=== PATIENT | male | born 1960 | race Caucasian/White ===

== ENCOUNTER 2017-08-27 20:25 | Inpatient (IN) | payer BC, OTHER, SELFPAY ==
[2017-08-27] MEDS ORDERED: methylPREDNISolone Sod Succ/PF 125 MG/2 ML VIAL ONE (20:31)
[2017-08-27] MEDS ORDERED: Succinylcholine Chloride 20 MG/ML 10 ml SYRINGE FS ONE (20:36)
[2017-08-27] MEDS ORDERED: Magnesium 2 GM/NS 0.9% 50 ML 2 GM in Premix Bag 1 BAG IVPB SCH (20:45)
[2017-08-27] MEDS ORDERED: Magnesium 2 GM/NS 0.9% 100 ML 2 GM in Premix Bag 1 BAG IVPB SCH (20:45)
[2017-08-27 20:54] LABS: Anion Gap 6 mmol/L (-14-95); Lactate 1.59 mmol/L (0.50-2.20); POC Est. GFR-MDRD-African-Amer Greater than 60 (2-60); POC Estimated GFR-MDRD Greater than 60 (2-60); T. Carbon Dioxide 33.1 mmol/L (1.0-85.0); pH (Venous) 7.273 (7.35-7.45); vO2 Saturation-calc 98.6 % (0.0-100.0)
[2017-08-27] MEDS ORDERED: Fentanyl 100 MCG/2 ML VIAL ONE ×2 (21:02→21:33)
[2017-08-27] MEDS ORDERED: Midazolam HCl 2 mg/2 ml Vial ONE (21:02)
[2017-08-27] MEDS ORDERED: Albuterol Sulfate 2.5 mg/3 ml Neb ONE (21:06)
[2017-08-27] MEDS ORDERED: Fentanyl 20 MCG/ML 0 ML ONE (21:36)
[2017-08-27] MEDS ORDERED: KETALAR IVPB PRN (21:37)
[2017-08-27] MEDS ORDERED: SODIUM CHLORIDE 0.9% IVPB PRN (21:37)
[2017-08-27 21:39] LABS: Hematocrit 51.7 % (42.0-52.0); Mean Platelet Volume 8.4 fL (7.4-10.4); Red Blood Cell (RBC) Count 5.27 mill/uL (4.70-6.10); White Blood Cell (WBC) Count 24.2 thou/uL (4.8-10.8)
[2017-08-27 21:40] LABS: Lactic Acid - Sepsis 1.6 mmol/L (0.5-2.2)
[2017-08-27 21:47] LABS: ALT (SGPT) 19 U/L (8-55); AST (SGOT) 25 U/L (5-34); Alkaline Phosphatase 95 U/L (40-150); Anion Gap 11 mmol/L (10-20); BUN (Urea Nitrogen) 10 mg/dL (8.4-25.7); Bilirubin, Total 0.4 mg/dL (0.2-1.2); Calc. Creatinine Clearance 0 mL/min (70-130); Calcium 8.6 mg/dL (7.8-10.44); Carbon Dioxide 30 mmol/L (22-29); Chloride 93 mmol/L (98-107); Estimated GFR-MDRD 89; Globulin 3.5 g/dL (2.4-3.5); Protein, Total 7.3 g/dL (6.0-8.3)
[2017-08-27] MEDS ORDERED: Propofol 1,000 MG/100 ML VIAL IV ONE (21:47)
[2017-08-27 21:48] LABS: Troponin I Less than 0.010 ng/mL (< 0.028)
[2017-08-27 21:54] LABS: Neutrophil 52 % (42-75); Reactive Lymphocytes 3 % (0-10)
[2017-08-27] MEDS ORDERED: Acetaminophen 325 MG Suppository PR PRN (22:02)
[2017-08-27] MEDS ORDERED: Milk Of Magnesia 30 ML UDCUP PO PRN (22:02)
[2017-08-27] MEDS ORDERED: Mag-Al 1200 mg/1200 mg/30 ML UDCUP PO PRN (22:02)
[2017-08-27] MEDS ORDERED: Acetaminophen 325 MG/10.15 ML UDCUP PO PRN (22:02)
[2017-08-27] MEDS ORDERED: Ondansetron HCl/PF 4 MG/2 ML Vial IVP PRN (22:02)
[2017-08-27] MEDS ORDERED: Bisacodyl 10 MG SUPP PR PRN (22:02)
[2017-08-27] MEDS ORDERED: Sedation Protocol FS ONE ×2 (22:02→22:03)
[2017-08-27] MEDS ORDERED: Lacri-Lube Opth Oint 3.5 GM TUBE EA EYE PRN (22:02)
[2017-08-27] MEDS ORDERED: Bisacodyl 5 MG TAB PO PRN (22:02)
[2017-08-27] MEDS ORDERED: Norepinephrine 8 MG/0.9% NS 250 ML IVPB PRN (22:02)
[2017-08-27] MEDS ORDERED: CCU Electrolyte Replacement 1 EACH IVPB ONE (22:02)
[2017-08-27] MEDS ORDERED: Vecuronium 10 MG VIAL IVP PRN (22:04)
[2017-08-27] MEDS ORDERED: CCU Electrolyte Replacement 1 EACH FS ONE (22:04)
[2017-08-27] MEDS ORDERED: hydrALAZINE 20 MG/ML VIAL SLOW IVP PRN (22:07)
[2017-08-27 22:14] LABS: Oxyhemoglobin 96.8 % (94.0-97.0); Sodium 131 mmol/L (135-148)
[2017-08-27] MEDS ORDERED: Diltiazem 125 MG in Sodium Chloride 0.9% 100 ML IVPB SCH (22:15)
[2017-08-27] MEDS ORDERED: Sodium Chloride 0.9% 1,000 ML IV SCH (22:15)
[2017-08-27 22:19] LABS: Mechanical Tidal Volume 550 ml; Modified Allen's Test POSITIVE; Pressure Support 10 cmH2O; Vent YES
--- NOTE | 2017-08-27 22:20 | RAD ---
AP CHEST: Indication: Dyspnea. IMPRESSION: There is blunting to the costophrenic angle suspicious for tiny effusions. Chronic lung changes are similar. Heart size is normal. No acute osseous abnormality is noted. POS: [facility]
--- NOTE | 2017-08-27 22:22 | RAD ---
AP CHEST: Indication: Dyspnea. IMPRESSION: Since the comparison exam dated 8:03 p.m., the patient has been intubated with placement of a gastri c catheter. Chronic lung changes are similar. There is improved aeration of the lung bases. No pneum othorax is evident. COMMENTS: ET tube tip is seen 7.7 cm from the level of the alena. Gastric catheter projects below the left he midiaphragm and beyond the field of view. There are vascular calcifications involving the aortic arc h. POS: [facility]
[2017-08-27] MEDS ORDERED: Potassium Phosphate 9 MMOL in Sodium Chloride 0.9% 100 ML IVPB PRN (22:25)
[2017-08-27] MEDS ORDERED: Potassium Chloride 40 MEQ in Sodium Chloride 0.9% 250 ML 250 ML IVPB PRN (22:25)
[2017-08-27] MEDS ORDERED: Potassium Chloride 20 MEQ TAB PO PRN (22:25)
[2017-08-27] MEDS ORDERED: Potassium Phosphate 12 MMOL in Sodium Chloride 0.9% 250 ML 250 ML IV PRN (22:25)
[2017-08-27] MEDS ORDERED: Magnesium Oxide 400 MG TAB PO PRN ×2 (22:25)
[2017-08-27] MEDS ORDERED: Potassium Chloride 40 MEQ in Premix Bag 1 BAG IVPB PRN (22:25)
[2017-08-27] MEDS ORDERED: Potassium Phosphate 15 MMOL in Sodium Chloride 0.9% 250 ML 250 ML IV PRN (22:25)
[2017-08-27] MEDS ORDERED: Magnesium 2 GM/NS 0.9% 100 ML 2 GM in Premix Bag 1 BAG IVPB PRN (22:25)
[2017-08-27] MEDS ORDERED: CCU ELECTROLYTE REPLACEMENT PROTOCOL FS PRN (22:25)
[2017-08-27] MEDS ORDERED: Fentanyl 20 MCG/ML 250 ML IVPB SCH (22:26)
[2017-08-27] MEDS ORDERED: DISCONTINUE PREVIOUS NARCOTIC PAIN MEDICATIONS AND BENZODIAZEPINES FS SCH (22:26)
[2017-08-27] MEDS: Amiodarone HCl 450 MG in Dextrose 5% in Water 250 ML IVPB SCH ×2 (23:54)
[2017-08-28] MEDS: Sodium Chloride 0.9% 1,000 ML IV SCH ×3 (00:11→17:41)
[2017-08-28] MEDS: methylPREDNISolone Sod Succ/PF 125 MG/2 ML VIAL IVP SCH ×5 (00:19→23:06)
[2017-08-28] MEDS ORDERED: Digoxin 0.5 MG/2 ML AMP SLOW IVP SCH (02:45)
[2017-08-28 03:17] LABS: Bilirubin Small (Negative); Blood, Urine Negative (Negative); Glucose, Urine (Dipstick) Negative (Negative); Ketone, Urine Negative (Negative); Nitrite Negative (Negative); Protein, Urine (Dipstick) Negative (Neg-Trace); Urobilinogen 0.2 mg/dL (0.2-1.0)
[2017-08-28 03:34] LABS: Bacteria/HPF None Seen HPF (None Seen); Hyaline Casts/LPF 4-6 HYALINE CAST LPF (0-3 Hyaline); RBC/HPF None Seen HPF (0-3); Squamous Epithelial 0-3 HPF (0-3); WBC/HPF 0-3 HPF (0-3)
[2017-08-28] MEDS: Lorazepam 2 MG/ML VIAL SLOW IVP PRN ×4 (04:38→17:04)
[2017-08-28] MEDS: Propofol 1,000 MG/100 ML VIAL IV PRN ×2 (04:43→16:22)
--- NOTE | 2017-08-28 04:45 | HP ---
PRIMARY CARE PHYSICIAN: Heather. CHIEF COMPLAINT: Respiratory failure, hypoxia, and shortness of breath. HISTORY OF PRESENT ILLNESS: Mr. Alonso is a 56-year-old male with past medical history o f COPD; peritonitis, November last year with perforation; hypertension; history of alcohol abuse; an d paroxysmal atrial fibrillation who was brought into the emergency room with complaints of shortnes s of breath. History is mainly obtained by discussion with the ER physician and electronic medical records have been reviewed extensively. The patient was last seen in our facility in 12/2015, at ich time, he was treated for perforated viscus. He had developed respiratory failure requiring intu bation at that time along with atrial fibrillation with RVR, which was treated with Cardizem drip. The patient is unable to provide any history at this time because of endotracheal tube in position. Mr. Alonso has his daughter and his brother at bedside, but reportedly [facility], so history is somewhat incomplete. His daughter reports that he was recently admitted to [facility] for about 2 weeks and just got discharged 2 days ago. He was treated for hi s \\\\"heart rate.\\\\" Medication evaluation shows that he was discharged on Multaq as well as Eliquis . He did not have any significant respiratory issues during that hospitalization and did not requir e intubation. However, the daughter reports that he was complaining of his chest not feeling well a nd having some problems breathing. Nevertheless, he developed some shortness of breath and was brou ght into the emergency room where he was found to be hypertensive initially. His breathing deterior ated quickly, despite nebulizer, magnesium, and steroid treatment and he had to be intubated using p ropofol and ketamine and is now being admitted to the Critical Care Unit on mechanical ventilation. His chest x-ray: show any evidence of pneumonia and preliminary diagnosis at this time is acute ex acerbation of COPD leading to acute respiratory failure. The patient did become hypotensive and tachycardic in the emergency room after receiving paralytics and sedatives. He is now hemodynamically stable. Further workup revealed leukocytosis with WBCs at 24,000 and ABG which shows pH of 7.29, pCO2 of 55, and pO2 of 136, sodium 131, chloride 96, potassi um 3.9 on pressure support ventilation. He has hyponatremia with sodium at 129, which is rather chr onic for him. His TSH is within normal limits. His renal function and cardiac enzymes are within n ormal limits. PAST MEDICAL HISTORY: 1. History of COPD. 2. Paroxysmal atrial fibrillation, on chronic anticoagulation with Eliquis twice a day. 3. History of hypoxic respiratory failure requiring intubation, 12/2015. 4. History of peritonitis with bowel perforation and sepsis, requiring surgery, 12/2015. 5. Hypertension. 6. Hyponatremia. 7. History of alcohol abuse. PAST SURGICAL HISTORY: Repair of the perforated-abdominal viscus, 12/2015. SOCIAL HISTORY: Listed as the patient being a smoker of 2 pack of cigarettes more than 20 years and drinker of 20 drinks per week. At this time, I am unsure how much he smokes or drinks as he is not able to provide any history. FAMILY HISTORY: No family history of premature coronary artery disease, stroke, or cancer. CURRENT MEDICATIONS: Include Multaq 400 mg p.o. b.i.d., Eliquis 5 mg p.o. b.i.d., lisinopril unknow n dose, and Protonix 40 mg daily. REVIEW OF SYSTEMS: It is largely unobtainable due to the patient being intubated and mildly sedated . LABORATORY DATA: CBC shows WBCs of 24.2 with 52% neutrophils, hemoglobin 16.3, platelet count of 39 8. Initial VBG shows pH of 7.27 with pCO2 of 67, and oxygen 139. Serum chemistry shows sodium 129, chloride 93, bicarbonate 30, anion gap 11, BUN and creatinine 10 and 0.88 respectively. Lactic aci d 1.6, magnesium 2.3. Liver enzymes unremarkable. Cardiac enzymes within normal limits. TSH 0.43. Chest x-ray by my review shows no evidence to suggest pulmonary effusion, edema, or infiltrate. PHYSICAL EXAMINATION: VITAL SIGNS: Heart rate in the 150s, blood pressure 113/56, afebrile, oxygen saturation 100% on jessie tilator. GENERAL: He is awake and alert and coughing because of the endotracheal tube in place. His hands a re in restraints. Family is at bedside. HEENT: Endotracheal tube in place. Head is normocephalic, atraumatic. No scleral icterus. No con junctival pallor. Mucous membrane appears moist. NECK: Supple without any lymphadenopathy or JVD. CHEST: Revealed decreased breath sounds throughout without any significant wheezing or rales or rho nchi. CARDIOVASCULAR: Rate and rhythm is irregular and tachycardic. ABDOMEN: Distended, mildly tender to palpation as he grimaces when I palpate, appears tympanic on p ercussion and soft without any rigidity. EXTREMITIES: Free of any cyanosis, clubbing, or edema. NEUROLOGIC: He is moving all 4 extremities or at least trying to as his hands are in restraints. H e answers to the questions with nodding or shaking of the head and appears awake, alert, and oriente d x3. VASCULAR: +2 pedal pulses felt bilaterally. SKIN: Free of any rashes or bruises. Feels warm and dry to touch. PSYCHIATRIC: Cannot be obtained due to intubated and sedated state. IMPRESSION AND PLAN: 1. Acute respiratory failure, likely secondary to acute exacerbation of chronic obstructive pulmona ry disease. The patient will be continued on mechanical ventilation and we will request consultatio n with Pulmonary Medicine. Dr. Ramirez has been notified and actually he has already seen the patie nt and I have briefly discussed the case with him. He will be admitted to the Critical Care Unit an d will be started on CCU electrolyte protocol and sedation protocol. We will provide him with a Fol ey catheter and monitor I's and O's, continue with high dose IV steroids along that is scheduled and p.r.n. nebulizers. We will repeat a chest x-ray in the morning. 2. Leukocytosis, likely a stress reaction. The patient does not appear to be septic. We will put him on empiric antibiotic coverage for possible bronchitis with levofloxacin for now. Blood culture s have been sent. We will check a UA and influenza test as well. The patient was recently hospital ized a few days ago. 3. Atrial fibrillation with rapid ventricular response. The patient has a history of chronic parox ysmal atrial fibrillation. His last echocardiogram done in our facility in 11/2015 when he had the similar episode showed preserved ejection fraction of 60% to 65% without any significant valvular ab normality. At this time, we will resume his Eliquis 5 mg p.o. b.i.d. and start him on amiodarone dr dasilva and hold his Multaq for now. We will request consultation with Cardiology for further recommenda tions. This is likely secondary to acute respiratory distress at this time. The patient's blood pr essures on the softer side, so we will avoid Cardizem drip at this time. 4. Hyponatremia, likely secondary to chronic alcohol abuse. We will monitor the sodium levels care fully. He will be on gentle IV hydration with normal saline and we will monitor the levels on a kemi ly basis. 5. History of alcoholism. I am unsure that the patient is still actively drinking or not. We will put him on ASE protocol to prevent withdrawal symptoms. We will avoid any long-acting sedated ligh t Valium at this time. 6. History of peritonitis. 7. History of chronic obstructive pulmonary disease as #1. 8. Code status: FULL CODE presumed at this time. 9. Deep venous thrombosis and gastrointestinal prophylaxis. The patient is on Eliquis. We will ad d PPIs IV. DISPOSITION: I have discussed the care plan with the daughter and brother in the room at this time. He will be admitted to Critical care Unit and further management will depend upon his clinical cou rse. Estimated length of stay is at least 3-4 midnight at this time. Critical care provided for a total of 35 minutes including face to face interactions and discussion with the family.
[2017-08-28 04:52] LABS: ALT (SGPT) 19 U/L (8-55); AST (SGOT) 25 U/L (5-34); Alkaline Phosphatase 77 U/L (40-150); Anion Gap 10 mmol/L (10-20); BUN (Urea Nitrogen) 9 mg/dL (8.4-25.7); Bilirubin, Total 0.5 mg/dL (0.2-1.2); Calc. Creatinine Clearance 142 mL/min (70-130); Calcium 7.9 mg/dL (7.8-10.44); Carbon Dioxide 24 mmol/L (22-29); Chloride 97 mmol/L (98-107); Estimated GFR-MDRD Greater than 90; Globulin 2.8 g/dL (2.4-3.5); Protein, Total 6.2 g/dL (6.0-8.3)
[2017-08-28 05:15] LABS: Band 1 % (5-11); Hematocrit 44.9 % (42.0-52.0); Mean Platelet Volume 7.9 fL (7.4-10.4); Neutrophil 95 % (42-75); Red Blood Cell (RBC) Count 4.57 mill/uL (4.70-6.10); White Blood Cell (WBC) Count 17.5 thou/uL (4.8-10.8)
--- NOTE | 2017-08-28 05:42 | CON ---
DATE OF CONSULTATION: 08/27/2017 CONSULTING PHYSICIAN: Hospitalist group. REASON FOR CONSULTATION: Acute respiratory failure. The following encompassed 45 minutes critical care time. HISTORY OF PRESENT ILLNESS: This is a 56-year-old male who came to the hospital with acute shortnes s of breath after taking a breathing treatment at home. His brother tells me that he was just disch arged from the [facility] after he stayed there for supraventricular tachycardia. The patient is currently intubated after failing BiPAP at this facility. He cannot give me anything in the way of history at this time. He has been seen by Dr. Dwayne Berg, my partner, in the past. He was in respiratory failure in the ICU about a year and a half ago. He ordinarily seeks care at [facility], but was brought here by the ambulance because of the proximity to this [facility]. PAST MEDICAL HISTORY: 1. Severe COPD. 2. Atrial fibrillation versus supraventricular tachycardia. PAST SURGICAL HISTORY: None. SOCIAL HISTORY: He has smoked over a year. He formerly drank heavily, but I think he has cut back on that. Does not use illicit drugs. MEDICATIONS: Prior to admission, Eliquis 5 mg b.i.d., Multaq 400 mg b.i.d., Flonase 2 sprays each n ostril daily, ipratropium 1 neb every 6 hours as needed, aspirin 81 mg daily, Protonix 40 mg daily, lisinopril 10 mg daily. ALLERGIES: None. REVIEW OF SYSTEMS: Cannot be obtained as the patient is currently intubated. PHYSICAL EXAMINATION: VITAL SIGNS: His heart rate is in the 150s to 160s. It is regular but P-waves appeared to be absen t. Blood pressure 128/75, respiratory rate 20. GENERAL: The patient is in profound respiratory distress. He is not quite sedated on mechanical ve ntilation. HEENT: Pupils react. Sclerae are anicteric. Oropharynx clear. NECK: Without adenopathy or JVD. LUNGS: He has grossly diminished breath sounds with a prolonged expiratory phase. CARDIAC: S1, S2, tachycardic and regular. ABDOMEN: Soft, nontender, nondistended. There is a large surgical scar that is well healed at lowe r midline. EXTREMITIES: Without clubbing, cyanosis, or edema. PSYCHIATRIC: The patient's overall appearance is a grossly disheveled. LABORATORY DATA: Sodium 129, potassium 5.1, chloride 93, CO2 of 30, BUN 10, creatinine 0.8, glucose 159. Troponin 0.1. Initial blood gas pH 7.27, pCO2 of 67, pO2 of 139. White blood cell count 24. 2, hemoglobin 16, hematocrit 51, platelet count 398. IMAGING: Chest x-ray shows gross over-distention without evidence of mass, effusion, or infiltrate. ASSESSMENT: 1. Chronic obstructive pulmonary disease with exacerbation. 2. Acute hypoxic and hypercapnic respiratory failure, requiring mechanical ventilation. 3. Severe tachycardia. PLAN: 1. Continue mechanical ventilation. 2. Sedate. 3. Empiric antibiotics. 4. IV steroids. 5. Aggressive nebulization treatment every 3 hours. 6. Restart the Eliquis. 7. Hold the ketamine drip. 8. IV fluids. 9. I spoke with family at the bedside.
[2017-08-28] MEDS: Budesonide 0.5 MG/2 ML NEB INH SCH ×2 (07:40→18:24)
[2017-08-28 07:47] LABS: Oxyhemoglobin 97.5 % (94.0-97.0); Sodium 127 mmol/L (135-148)
[2017-08-28 08:09] LABS: Mechanical Tidal Volume 450 ml; Mode SIMV.PSV; Modified Allen's Test POSITIVE; Pressure Support 10 cmH2O; Vent YES
--- NOTE | 2017-08-28 08:11 | PRG ---
DATE OF SERVICE: 08/28/2017 Thirty-five minutes critical care time. The patient remains intubated on mechanical ventilation. He becomes very agitated with any stimulation. PHYSICAL EXAMINATION: VITAL SIGNS: His pulse is 135, blood pressure 130/84, O2 sat 97%, temperature 97.9. HEENT: Disheveled appearance. NECK: No JVD. LUNGS: End expiratory wheezing with air trapping noted on the ventilator waveforms. CARDIAC: S1, S2, tachycardic. ABDOMEN: Soft, nontender. EXTREMITIES: No clubbing, cyanosis, or edema. LABORATORY DATA: PH 7.37, pCO2 43, pO2 161. White blood cell count 17.5, hematocrit 44.9, platelet count 277. Sodium 126, potassium 4.7, chloride 97, CO2 24, BUN 9, creatinine 0.7, glucose 147. ASSESSMENT: 1. Acute respiratory failure related to chronic obstructive pulmonary disease exacerbation. 2. Tachycardia, which is either atrial fibrillation, atrial flutter or multifocal atrial tachycardia. PLAN: 1. He is not weanable at this time secondary to air trapping. 2. Continue IV steroids and nebulization treatments. 3. Need Cardiology input in regards to the tachycardia. 4. He is continuing anticoagulation that was started at [facility]. 5. He would be stable from a pulmonary care critical care standpoint to transfer to [facility] if his insurance necessitates that he be in that hospital. CHARLIE
[2017-08-28] MEDS: Amiodarone HCl 450 MG in Dextrose 5% in Water 250 ML IVPB SCH ×2 (08:28)
[2017-08-28] MEDS: Famotidine 20 MG TAB PER TUBE SCH ×2 (08:28→20:37)
[2017-08-28] MEDS: Apixaban 5 MG TAB PER TUBE SCH ×2 (08:28→20:37)
--- NOTE | 2017-08-28 08:52 | PDOC.PN ---
- Subjective Encounter Start Date: 08/28/17 Encounter Start Time: 08:30 -: non-verbal Subjective: INTUBATED, SEDATED - Objective MAR Reviewed: Yes Vital Signs & Weight: Vital Signs (12 hours) Temp Pulse Resp BP Pulse Ox 08/28/17 08:00 98.6 F 131 H 18 08/28/17 07:34 127 H 147/87 H 08/28/17 07:32 128 H 26 H 98 08/28/17 07:00 98.6 F 08/28/17 06:00 16 08/28/17 04:00 97.9 F 16 08/28/17 03:27 142 H 08/28/17 03:26 98 08/28/17 02:46 138 H 08/28/17 02:00 17 08/28/17 00:00 97.6 F 25 H 08/27/17 23:54 141 H 82/43 L 97 08/27/17 23:53 97 08/27/17 23:20 97.6 F 160 H 25 H 95 08/27/17 23:10 95 Weight Weight 192 lb 3.889 oz Most Recent Monitor Data Heart Rate from ECG 134 NIBP 110/74 NIBP BP-Mean 82 Respiration from ECG 18 SpO2 95 I&O: 08/27/17 08/28/17 08/29/17 06:59 06:59 06:59 Intake Total 892.3 Output Total 890 165 Balance 2.3 -165 Result Diagrams: 08/28/17 04:02 08/28/17 04:02 Radiology Reviewed by me: Yes Phys Exam - Physical Examination SEDATED HEENT: moist MMs ETT IN PLACE Respiratory: clear to auscultation bilateral Cardiovascular: irregular TACHYCARDIC Gastrointestinal: soft HYPOACTIVE BS Musculoskeletal: no edema SEDATED Deviation from normal: SEDATED Skin: no rash Dx/Plan (1) Acute respiratory failure Code(s): J96.00 - ACUTE RESPIRATORY FAILURE, UNSP W HYPOXIA OR HYPERCAPNIA Status: Acute Qualifiers: Respiratory failure complication: hypercapnia Qualified Code(s): J96.02 - Acute respiratory failure with hypercapnia (2) Leucocytosis Code(s): D72.829 - ELEVATED WHITE BLOOD CELL COUNT, UNSPECIFIED Status: Acute (3) Alcohol abuse Code(s): F10.10 - ALCOHOL ABUSE, UNCOMPLICATED Status: Chronic (4) COPD (chronic obstructive pulmonary disease) Status: Chronic Qualifiers: COPD type: COPD with acute exacerbation Qualified Code(s): J44.1 - Chronic obstructive pulmonary disease with (acute) exacerbation (5) HTN (hypertension) Code(s): I10 - ESSENTIAL (PRIMARY) HYPERTENSION Status: Chronic Qualifiers: Hypertension type: essential hypertension Qualified Code(s): I10 - Essential (primary) hypertension Comment: monitor for now did not ahve home meds (6) Hyponatremia Code(s): E87.1 - HYPO-OSMOLALITY AND HYPONATREMIA Status: Chronic (7) Paroxysmal a-fib Code(s): I48.0 - PAROXYSMAL ATRIAL FIBRILLATION Status: Chronic Comment: NSR now. On Cardizem - Plan cont current plan of care, plan discussed w/ family, respiratory therapy INTUBATED, GISELLA WITH POSSIBLE CARDIOVERSION PER CARDS. -: VENT SUPPORT PER PULMONARY, STEROIDS B2 AGONISTS * .
--- NOTE | 2017-08-28 08:54 | PDOC.EVN ---
Event Note - Event Note Event Note: CRITICAL CARE TIME 42MINUTES. SPOKE WITH DAUGHTER AT BEDSIDE WITH ASTROPHYSICS TEACHER
[2017-08-28] MEDS ORDERED: Enoxaparin Sodium 40 MG/0.4 ML SYRINGE SC SCH (09:00)
[2017-08-28] MEDS ORDERED: Pantoprazole 40 MG VIAL IVP SCH (09:00)
--- NOTE | 2017-08-28 09:41 | RAD ---
CHEST 1 VIEW: Date: 08/28/17 HISTORY: Ventilated patient. COMPARISON: Chest 1 view from prior day. FINDINGS/IMPRESSION: The patient is intubated with endotracheal tube tip craniad to the alena 5.5 cm. Heart size upper l imits of normal. Enteric tube tip is below the diaphragm and out of field of view. No focal air spac e consolidation. POS: [facility]
--- NOTE | 2017-08-28 17:09 | OP ---
DATE OF SERVICE: 08/28/2017 PREPROCEDURE DIAGNOSIS: Atrial flutter/atrial fibrillation with hypotension. PREPROCEDURE DIAGNOSIS: Successful cardioversion. SUMMARY: Mr. Alonso is a pleasant 56-year-old white gentleman who comes to the hospital for respir atory insufficiency. He is intubated and sedated and went into AFIB, RVR and hypotension, so the pl an was to do GISELLA cardioversion. After thrombus was ruled out with a transesophageal echo, the pads were placed and a single 100 joules synchronized shock was delivered and successfully converting him from atrial flutter to normal sinus rhythm with PACs. The patient tolerated the procedure well. RECOMMENDATIONS: Include, 1. Continue amiodarone drip. 2. Continue Eliquis for now.
--- NOTE | 2017-08-28 17:17 | CON ---
DATE OF CONSULTATION: 08/28/2017 REASON FOR CONSULTATION: Atrial fibrillation/atrial flutter. HISTORY OF PRESENT ILLNESS: Mr. Alonso is a very pleasant 56-year-old white gentleman, who comes t o the hospital for shortness of breath. He was diagnosed with a COPD exacerbation and had to be int ubated. He has a history of paroxysmal atrial fibrillation and was seen last here in 2015. He had a very similar presentation with a COPD exacerbation that required intubation. He was started on am iodarone drip with the difference that he converted to sinus fairly quickly and he remained in sinus throughout his hospital stay. He was lost to follow up after that. He probably went to the [facility] 2 weeks ago for having his heart rate be high apparently and he was started on Mu ltaq and Eliquis. The daughter is unable to tell me if he was actually back in sinus rhythm before he left the hospital, but there was a lot of talk about possibly doing a cardioversion and eventuall y this never happened. This time around he is intubated and his heart rate is in the 150s and what appears to be 2:1 atrial flutter and his blood pressure is in the 80s/50s. PAST MEDICAL HISTORY: 1. COPD. 2. Paroxysmal atrial fibrillation on chronic anticoagulation. 3. Hypoxic respiratory failure, requiring intubation back in 12/2015. 4. Peritonitis and bowel perforation last year. 5. Hypertension. 6. Hyponatremia. 7. Alcohol abuse in the past. He has not had any alcohol for the last 2 weeks. PAST SURGICAL HISTORY: Repair of perforated viscus. SOCIAL HISTORY: Smokes a pack of cigarettes for over the last 20 years. He uses about a 12 pack al most every day. He has not drank anything for the last 2 weeks since he was in the hospital. FAMILY HISTORY: Noncontributory. OUTPATIENT MEDICATIONS: Include; 1. Multaq 400 mg b.i.d. 2. Eliquis 5 mg b.i.d. 3. Lisinopril 4. Protonix. ALLERGIES: No known drug allergies. REVIEW OF SYSTEMS: Unobtainable as the patient is sedated and intubated. PHYSICAL EXAMINATION: VITAL SIGNS: Temperature 98.4, pulse 153, respiratory rate 20, satting 100% on 50% FiO2. GENERAL: Sedated and intubated. HEENT: Normocephalic and atraumatic. NECK: Supple. LUNGS: Coarse breath sounds bilaterally. Distant lung sound. CARDIOVASCULAR: S1, S2. No S3 or S4. Heart rate at 153. ABDOMEN: Soft, positive bowel sounds. EXTREMITIES: No edema. SKIN: Warm and dry. LABORATORY DATA: Laboratory work was reviewed. White count of 24 on admission down to 17, hemoglob in of 16, hematocrit of 51, platelet count of 398. ABG was reviewed. Chemistries were reviewed. S odium of 129 on admission, normal potassium at 5.1, chloride of 93, carbon dioxide of 30, anion gap of 11, BUN of 10, creatinine 0.88. GFR of 89, troponin has been less than assay limit x1. TSH was normal. EKG showed atrial flutter with 2:1 AV block. ASSESSMENT: 1. Paroxysmal atrial flutter/atrial fibrillation. Blood pressure in the 80s/40s. 2. Chronic obstructive pulmonary disease exacerbation. 3. Possible lower respiratory infection. 4. Acute hypoxic hypercapnic respiratory insufficiency, requiring mechanical ventilation. 5. Alcohol abuse. 6. Tobacco abuse. PLAN: Given his hypotension and his tachycardia; at this time, we will plan on doing a GISELLA cardiove rsion. I have spoken with the daughter about this. Risks and benefits were reviewed and she agrees to proceed. Continue Eliquis for now for stroke prophylaxis and continue amiodarone drip as well. Further recommendations per results of GISELLA and cardioversion.
[2017-08-28 22:50] LABS: Anion Gap 13 mmol/L (10-20); BUN (Urea Nitrogen) 9 mg/dL (8.4-25.7); Calc. Creatinine Clearance 134 mL/min (70-130); Calcium 8.2 mg/dL (7.8-10.44); Carbon Dioxide 24 mmol/L (22-29); Chloride 98 mmol/L (98-107); Estimated GFR-MDRD Greater than 90
--- NOTE | 2017-08-29 | ECHO ---
DATE OF SERVICE: 08/28/17 Transesophageal echo was done for evaluation of a possible cardioversion afterwards. Sedation was achieved as he is intubated and sedated already. A small bolus of propofol was given. After adequate sedation was achieved, transesophageal probe was inserted into the mouth into the eso phagus without problems. We then obtained multiplanar views. Left ventricle is normal size. Normal systolic function, EF estimated at 55-60%. No regional wall motion abnormalities. Left atrium is mildly dilated. Left atrial appendage is a small appendage with normal velocities with no evidence of mass or thromb us. Right atrium is normal size with no mass or thrombus. Right ventricle is normal size. Aortic valve was sclerotic but opens well, no stenosis or regurgitation. Mitral valve is structurally normal. There is mild MR, no stenosis. Tricuspid valve is structurally normal. There is moderate TR. Pulmonary valve is structurally normal. There is no stenosis or regurgitation. CONCLUSIONS: 1. Normal systolic function. 2. Ejection fraction at 55-60%. 3. Left atrial appendage without any significant mass or thrombus. 4. Mild MR, moderate TR.
[2017-08-29] MEDS: Amiodarone HCl 450 MG in Dextrose 5% in Water 250 ML IVPB SCH ×4 (00:04→13:16)
[2017-08-29] MEDS: Propofol 1,000 MG/100 ML VIAL IV PRN (00:57)
[2017-08-29] MEDS: Lorazepam 2 MG/ML VIAL SLOW IVP PRN (01:18)
[2017-08-29 04:45] LABS: #Lymphocytes 0.5 thou/uL (1.20-3.40); #Monocytes 0.2 thou/uL (0.11-0.59); #Neutrophils 8.2 thou/uL (1.40-6.50); %Basophils 0.1 % (0.0-1.0); %Lymphocytes 5.2 % (21.0-51.0); %Monocytes 2.3 % (0.0-10.0); Hematocrit 37.7 % (42.0-52.0); Mean Platelet Volume 7.6 fL (7.4-10.4); Red Blood Cell (RBC) Count 3.86 mill/uL (4.70-6.10); White Blood Cell (WBC) Count 8.9 thou/uL (4.8-10.8)
[2017-08-29 05:13] LABS: Band 5 % (5-11); Hematocrit 38.1 % (42.0-52.0); Mean Platelet Volume 7.6 fL (7.4-10.4); Neutrophil 85 % (42-75); Red Blood Cell (RBC) Count 3.91 mill/uL (4.70-6.10)
[2017-08-29] MEDS: Sodium Chloride 0.9% 1,000 ML IV SCH ×4 (05:17→18:09)
[2017-08-29 05:18] LABS: ALT (SGPT) 15 U/L (8-55); AST (SGOT) 14 U/L (5-34); Alkaline Phosphatase 61 U/L (40-150); Anion Gap 9 mmol/L (10-20); BUN (Urea Nitrogen) 9 mg/dL (8.4-25.7); Bilirubin, Total 0.3 mg/dL (0.2-1.2); Calc. Creatinine Clearance 150 mL/min (70-130); Calcium 8.2 mg/dL (7.8-10.44); Carbon Dioxide 26 mmol/L (22-29); Chloride 99 mmol/L (98-107); Estimated GFR-MDRD Greater than 90; Globulin 2.4 g/dL (2.4-3.5); Protein, Total 5.5 g/dL (6.0-8.3)
[2017-08-29] MEDS: methylPREDNISolone Sod Succ/PF 125 MG/2 ML VIAL IVP SCH (06:29)
[2017-08-29] MEDS: Budesonide 0.5 MG/2 ML NEB INH SCH ×3 (07:40→18:44)
--- NOTE | 2017-08-29 07:58 | PRG ---
DATE OF SERVICE: 08/29/2017 A 35 minutes critical care time. SUBJECTIVE: The patient remains intubated on mechanical ventilation. He is awake, alert, and follo ws commands. PHYSICAL EXAMINATION: VITAL SIGNS: His temperature is 98.6, pulse 104, blood pressure 131/77. Total intake for 24 hours 3711, output 1650. HEENT: Unremarkable. NECK: No JVD. CHEST: Clear to auscultation. CARDIAC: S1 and S2 regular - he was cardioverted yesterday from atrial flutter to sinus rhythm. ABDOMEN: Soft, nontender. EXTREMITIES: No clubbing, cyanosis, or edema. LABORATORY DATA: Sodium 130, potassium 4.3, chloride 99, CO2 26, BUN 9, creatinine 0.6, glucose 144 . Albumin 3.1. White blood cell count 8.9, hematocrit 37.7, platelet count 259. X-RAY FINDINGS: Chest x-ray is clear. ASSESSMENT: 1. Chronic obstructive pulmonary disease exacerbation. 2. Atrial flutter, which has now been converted to a sinus rhythm. PLAN: 1. The patient will be extubated and observed. 2. I will go down on the steroid dose. 3. Update family when they are available.
--- NOTE | 2017-08-29 08:24 | RAD ---
CHEST ONE VIEW: History: Ventilated patient. Comparison: Prior day. FINDINGS: Patient is intubated with tip in unchanged position. Enteric tube is in place with the tip below the diaphragm and out of the field of view. There are linear opacities in the left lung base likely atelectasis. Heart size is similar. No large hemithorax. IMPRESSION: No significant change in the radiograph appearance of the chest. POS: [facility]
[2017-08-29] MEDS: Famotidine 20 MG TAB PER TUBE SCH ×2 (08:38→21:19)
[2017-08-29] MEDS: Apixaban 5 MG TAB PER TUBE SCH ×2 (08:38→21:19)
--- NOTE | 2017-08-29 09:28 | PDOC.PN ---
- Subjective Encounter Start Date: 08/29/17 Encounter Start Time: 09:25 Patient seen at bedside. Extubated this morning. Denies SOB, palpitations. - Objective MAR Reviewed: Yes Vital Signs & Weight: Vital Signs (12 hours) Temp Pulse Resp BP Pulse Ox 08/29/17 07:44 110 H 19 97 08/29/17 07:42 98.6 F 104 H 18 08/29/17 07:00 98.6 F 08/29/17 06:00 17 08/29/17 04:27 89 15 100 08/29/17 04:00 98 F 14 08/29/17 02:38 99 110/57 L 08/29/17 02:00 17 08/29/17 00:57 100 08/29/17 00:55 107 H 22 H 100 08/29/17 00:00 97.9 F 21 H 08/28/17 23:00 100 08/28/17 22:41 94 130/65 08/28/17 22:40 94 16 100 08/28/17 22:00 17 Weight Admit Weight 192 lb Weight 195 lb 1.6 oz Most Recent Monitor Data Heart Rate from ECG 110 NIBP 157/83 NIBP BP-Mean 96 Respiration from ECG 16 SpO2 100 I&O: 08/28/17 08/29/17 08/30/17 06:59 06:59 06:59 Intake Total 892.3 3711.4 13 Output Total 890 1650 60 Balance 2.3 2061.4 -47 Result Diagrams: 08/29/17 04:25 08/29/17 04:25 Phys Exam - Physical Examination Constitutional: NAD HEENT: moist MMs Neck: no JVD Respiratory: clear to auscultation bilateral Cardiovascular: RRR Gastrointestinal: soft Musculoskeletal: pulses present Neurological: moves all 4 limbs Psychiatric: A&O x 3 Dx/Plan (1) Acute respiratory failure Code(s): J96.00 - ACUTE RESPIRATORY FAILURE, UNSP W HYPOXIA OR HYPERCAPNIA Status: Resolved Qualifiers: Respiratory failure complication: hypercapnia Qualified Code(s): J96.02 - Acute respiratory failure with hypercapnia (2) Alcohol abuse Code(s): F10.10 - ALCOHOL ABUSE, UNCOMPLICATED Status: Chronic (3) COPD (chronic obstructive pulmonary disease) Status: Chronic Qualifiers: COPD type: COPD with acute exacerbation Qualified Code(s): J44.1 - Chronic obstructive pulmonary disease with (acute) exacerbation (4) HTN (hypertension) Code(s): I10 - ESSENTIAL (PRIMARY) HYPERTENSION Status: Chronic Qualifiers: Hypertension type: essential hypertension Qualified Code(s): I10 - Essential (primary) hypertension (5) Paroxysmal a-fib Code(s): I48.0 - PAROXYSMAL ATRIAL FIBRILLATION Status: Chronic - Plan cont current plan of care, continue antibiotics, respiratory therapy, DVT proph w/lovenox * Monitor after extubation. * On IV amiodarone. Will transition to PO per cardiology * Eliquis for CVA prophylaxis * Duonebs/ IV steroids (weaning) * Levaquin * ASE protocol
[2017-08-29] MEDS: PROVENTIL INHALER 6.7 G (200 INHALATIONS) INH SCH ×5 (10:39→22:21)
[2017-08-29] MEDS: Ipratropium Oral Inhaler (200 INHALATIONS) INH SCH ×2 (10:42→15:01)
[2017-08-29] MEDS: Acetaminophen 325 MG TAB PO PRN (13:15)
[2017-08-29] MEDS: Dronedarone HCl 400 MG TAB PO SCH (17:06)
[2017-08-29] MEDS: Arformoterol 15 MCG/2 ML NEB NEB SCH (18:41)
--- NOTE | 2017-08-29 19:19 | PDOC.CTH ---
Cardiology Progress Note - Subjective He has been extubated since last seen. He remains in SR with PAC's. - Objective Vital Signs Temp Pulse Resp Pulse Ox 08/29/17 18:41 108 H 16 98 08/29/17 15:00 98.7 F 104 H 19 100 08/29/17 11:00 98.6 F 08/29/17 10:42 108 H 17 100 08/29/17 07:44 110 H 19 97 08/29/17 07:42 98.6 F 104 H 18 Admit Weight 192 lb Weight 195 lb 1.6 oz 08/28/17 08/29/17 08/30/17 06:59 06:59 06:59 Intake Total 892.3 3711.4 828 Output Total 890 1650 1345 Balance 2.3 2061.4 -517 - Physical Examination General/Neuro: alert & oriented x3, NAD Neck: no JVD present Lungs: unlabored respirations Heart: RRR Abdomen: NT/ND Extremities: other: (no edema) - Telemetry Telemetry Rhythm: S tach PAC's - Labs Result Diagrams: 08/29/17 04:25 08/29/17 04:25 Troponin/CKMB CK-MB (CK-2) 5.0 ng/mL (0-6.6) 08/27/17 20:43 Troponin I Less than 0.010 ng/mL (< 0.028) 08/27/17 20:43 - Assessment/Plan 1. Aflutter/Afib s/p DCCV now in sinus 2. COPD exacerbation 3. Alcohol abuse 4. Tobacco abuse. PLAN: - Agree with continued Multaq, off amiodarone. - Eliquis for strike prophylaxis. - Counselled on cessation.
[2017-08-30 04:34] LABS: ALT (SGPT) 23 U/L (8-55); AST (SGOT) 24 U/L (5-34); Alkaline Phosphatase 67 U/L (40-150); Anion Gap 8 mmol/L (10-20); BUN (Urea Nitrogen) 10 mg/dL (8.4-25.7); Bilirubin, Total 0.4 mg/dL (0.2-1.2); Calc. Creatinine Clearance 160 mL/min (70-130); Calcium 8.5 mg/dL (7.8-10.44); Carbon Dioxide 31 mmol/L (22-29); Chloride 100 mmol/L (98-107); Estimated GFR-MDRD Greater than 90; Globulin 2.5 g/dL (2.4-3.5); Protein, Total 5.6 g/dL (6.0-8.3)
[2017-08-30 05:18] LABS: Band 4 % (5-11); Hematocrit 39.3 % (42.0-52.0); Mean Platelet Volume 7.7 fL (7.4-10.4); Neutrophil 87 % (42-75); Red Blood Cell (RBC) Count 4.03 mill/uL (4.70-6.10); White Blood Cell (WBC) Count 10.2 thou/uL (4.8-10.8)
[2017-08-30] MEDS: Arformoterol 15 MCG/2 ML NEB NEB SCH ×2 (05:31→19:21)
[2017-08-30] MEDS: Budesonide 0.5 MG/2 ML NEB INH SCH ×2 (05:32→19:24)
[2017-08-30] MEDS: Acetaminophen 325 MG TAB PO PRN ×2 (06:39→15:17)
[2017-08-30] MEDS: PROVENTIL INHALER 6.7 G (200 INHALATIONS) INH SCH (07:42)
--- NOTE | 2017-08-30 08:02 | PRG ---
DATE OF SERVICE: 08/30/2017 The patient is doing well. He is complaining of some generalized pain. PHYSICAL EXAMINATION: VITAL SIGNS: Temperature 98.5, pulse 96, blood pressure 184/85, O2 saturation 100%, 24-hour intake 928, output 3495. HEENT: Unremarkable. NECK: No JVD. LUNGS: Clear without wheezing. CARDIAC: S1 and S2 regular. ABDOMEN: Soft. EXTREMITIES: No edema. LABORATORY DATA: White blood cell count 10.2, hematocrit 39.3, platelet count 277. Sodium 134, pot assium 4.7, chloride 100, CO2 31, BUN 10, creatinine 0.6, glucose 113. ASSESSMENT: 1. Chronic obstructive pulmonary disease exacerbation. 2. Atrial flutter - now converted to sinus rhythm. 3. Hypertension. 4. History of tobacco and alcohol abuse. PLAN: The patient can be transferred out to telemetry. If Heather is willing, he is defini tely stable for transfer to that facility. I do not think he will require hospitalization much long er, but I cannot give a definitive date in terms of discharge. We will go ahead and initiate physic al therapy with the assumption that he will be at this facility for a while.
[2017-08-30] MEDS: Dronedarone HCl 400 MG TAB PO SCH ×2 (08:30→18:13)
[2017-08-30] MEDS ORDERED: Ibuprofen 600 MG TAB PO PRN (08:33)
--- NOTE | 2017-08-30 08:46 | RAD ---
PORTABLE AP CHEST X-RAY: 08/30/2017 HISTORY: On ventilator. Follow-up evaluation. COMPARISON: 08/30/2017 FINDINGS: Endotracheal tube and nasogastric tube have been removed. There are linear increased densities at e ach lung base, probably related to atelectasis. There is also suggestion of small bilateral pleural effusions. Vascular calcification seen at the thoracic aorta. No other interval change. IMPRESSION: 1. Suggestion of small bilateral pleural effusions and associated atelectasis. 2. Removal of the endotracheal tube and nasogastric tube. POS: [facility]
[2017-08-30] MEDS: Apixaban 5 MG TAB PER TUBE SCH ×2 (08:51→21:35)
[2017-08-30] MEDS: Famotidine 20 MG TAB PER TUBE SCH ×2 (08:51→21:36)
[2017-08-30] MEDS: Lisinopril 10 MG TAB PO SCH (08:52)
--- NOTE | 2017-08-30 09:50 | PDOC.PN ---
- Subjective Encounter Start Date: 08/30/17 Encounter Start Time: 09:48 Patient seen at bedside. No overnight events, complains of generalized pain. - Objective MAR Reviewed: Yes Vital Signs & Weight: Vital Signs (12 hours) Temp Pulse Resp BP Pulse Ox 08/30/17 08:52 166/71 H 08/30/17 08:51 112 H 166/71 H 08/30/17 08:00 97.7 F 08/30/17 05:31 107 H 22 H 97 08/30/17 04:00 98.5 F 08/30/17 00:00 98.4 F Weight Admit Weight 192 lb Weight 209 lb 10.554 oz Most Recent Monitor Data Heart Rate from ECG 115 NIBP 166/71 NIBP BP-Mean 115 Respiration from ECG 17 SpO2 95 I&O: 08/29/17 08/30/17 08/31/17 06:59 06:59 06:59 Intake Total 3711.4 1695 30 Output Total 1650 3495 140 Balance 2061.4 -1800 -110 Result Diagrams: 08/30/17 03:45 08/30/17 03:45 Phys Exam - Physical Examination Constitutional: NAD HEENT: moist MMs Neck: no JVD Respiratory: clear to auscultation bilateral Cardiovascular: irregular Gastrointestinal: soft Musculoskeletal: pulses present Neurological: moves all 4 limbs Psychiatric: A&O x 3 Dx/Plan (1) Alcohol abuse Code(s): F10.10 - ALCOHOL ABUSE, UNCOMPLICATED Status: Chronic (2) COPD (chronic obstructive pulmonary disease) Status: Chronic Qualifiers: COPD type: COPD with acute exacerbation Qualified Code(s): J44.1 - Chronic obstructive pulmonary disease with (acute) exacerbation (3) HTN (hypertension) Code(s): I10 - ESSENTIAL (PRIMARY) HYPERTENSION Status: Chronic Qualifiers: Hypertension type: essential hypertension Qualified Code(s): I10 - Essential (primary) hypertension (4) Paroxysmal a-fib Code(s): I48.0 - PAROXYSMAL ATRIAL FIBRILLATION Status: Chronic - Plan cont current plan of care, continue antibiotics, respiratory therapy, DVT proph w/SCDs * Continue with multaq. * Eliquis for CVA prophylaxis * Levaquin * Duonebs/Steroids * Cessation counseled * Transfer to telemetry
[2017-08-30] MEDS ORDERED: Cepastat Lozenges 1 LOZ PO PRN (15:23)
[2017-08-30] MEDS: guaiFENesin/DM ER PO SCH ×2 (18:13→21:53)
--- NOTE | 2017-08-30 19:17 | PDOC.CTH ---
Cardiology Progress Note - Subjective No new issues. - Objective Vital Signs Temp Pulse Resp BP Pulse Ox 08/30/17 11:26 97.9 F 08/30/17 08:52 166/71 H 08/30/17 08:51 112 H 166/71 H 08/30/17 08:00 97.7 F 08/30/17 07:40 97.7 F 98 16 96 Admit Weight 192 lb Weight 209 lb 10.554 oz 08/29/17 08/30/17 08/31/17 06:59 06:59 06:59 Intake Total 3711.4 1695 1080 Output Total 1650 3495 1540 Balance 2061.4 -4288 -460 - Physical Examination General/Neuro: NAD Neck: no JVD present Lungs: unlabored respirations Heart: RRR Abdomen: NT/ND Extremities: other: (no edema) - Telemetry Telemetry Rhythm: NSR, sev PAC's - Labs Result Diagrams: 08/30/17 03:45 08/30/17 03:45 Troponin/CKMB CK-MB (CK-2) 5.0 ng/mL (0-6.6) 08/27/17 20:43 Troponin I Less than 0.010 ng/mL (< 0.028) 08/27/17 20:43 - Assessment/Plan 1. Aflutter/Afib s/p DCCV, remains in sinus 2. COPD exacerbation 3. Alcohol abuse 4. Tobacco abuse. PLAN: - Continued Multaq. - Eliquis for strike prophylaxis. - Counselled on cessation.
[2017-08-30] MEDS: Amiodarone HCl 450 MG, Admixture Fee 1 EACH in Dextrose 5% in Water 250 ML IVPB SCH ×3 (21:28)
[2017-08-30 21:36] LABS: ALT (SGPT) 39 U/L (8-55); AST (SGOT) 45 U/L (5-34); Alkaline Phosphatase 81 U/L (40-150); Bilirubin, Direct 0.2 mg/dL (0.1-0.3); Bilirubin, Total 0.6 mg/dL (0.2-1.2); Magnesium 2.4 mg/dL (1.6-2.6); Protein, Total 6.9 g/dL (6.0-8.3)
[2017-08-30] MEDS ORDERED: Metoprolol Tartrate 5 MG/5 ML VIAL IVP SCH (23:30)
[2017-08-30] MEDS ORDERED: Digoxin 0.5 MG/2 ML AMP SLOW IVP SCH (23:30)
[2017-08-31] MEDS: Amiodarone HCl 450 MG, Admixture Fee 1 EACH in Dextrose 5% in Water 250 ML IVPB SCH ×3 (05:22)
[2017-08-31] MEDS: Lisinopril 10 MG TAB PO SCH (09:00)
[2017-08-31] MEDS ORDERED: guaiFENesin/DM ER PO SCH (09:00)
[2017-08-31] MEDS: Famotidine 20 MG TAB PER TUBE SCH (09:00)
[2017-08-31] MEDS: Apixaban 5 MG TAB PER TUBE SCH (09:00)
[2017-08-31] MEDS: Acetaminophen 325 MG TAB PO PRN (09:01)
--- NOTE | 2017-08-31 10:38 | PRG ---
DATE OF SERVICE: 08/31/2017 SUBJECTIVE: He feels better. He has not been out of bed yet. PHYSICAL EXAMINATION: VITAL SIGNS: Temperature is 97.4, pulse ranging between 107-135, blood pressure 166/85, sats 96% on 2 liters. HEENT: Unremarkable. NECK: No JVD. LUNGS: Clear to auscultation. CARDIOVASCULAR: S1, S2 tachycardic. ABDOMEN: Soft and nontender. EXTREMITIES: Without clubbing, cyanosis or edema. ASSESSMENT: 1. Chronic obstructive pulmonary disease with exacerbation, which is better. 2. Atrial flutter at the time of admission was still some persistent runs of tachycardia. PLAN: 1. Continue the Brovana and DuoNeb. 2. Continue cardiac management with Dr. Castle for the tachycardia.
[2017-08-31] MEDS: Arformoterol 15 MCG/2 ML NEB NEB SCH ×2 (10:47→11:17)
[2017-08-31] MEDS: Budesonide 0.5 MG/2 ML NEB INH SCH ×2 (10:48→11:20)
[2017-08-31 12:56] VITALS: BP 117/77; TEMP 97.7
--- NOTE | 2017-08-31 13:41 | PDOC.CTH ---
Cardiology Progress Note - Subjective He went into afib RVR last night and he was restarted on amiodarone drip. He also received IV metoprolol and digoxin and did slow down some into the 120's to 130's. He has no other issues. - Objective Vital Signs Temp Pulse Resp BP BP Pulse Ox 08/31/17 12:00 97.7 F 136 H 19 117/77 94 L 08/31/17: 141 H 24 H 97 08/31/17 10:49 96 08/31/17 09:01 135 H 08/31/17 09:00 166/85 H 08/31/17 08:00 97.4 F L 135 H 18 161/85 H 96 08/31/17 04:00 97.4 F L 107 H 22 H 166/81 H 99 Admit Weight 192 lb Weight 205 lb 4.8 oz 08/30/17 08/31/17 09/01/17 06:59 06:59 06:59 Intake Total 1695 2361 Output Total 3495 4190 Balance -1800 -1829 - Physical Examination General/Neuro: alert & oriented x3, NAD Neck: no JVD present Lungs: unlabored respirations Heart: other: (Irregular) Abdomen: NT/ND Extremities: + edema B (Trace) - Telemetry Telemetry Rhythm: Afib RVR - Labs Result Diagrams: 08/30/17 03:45 08/30/17 21:02 Troponin/CKMB CK-MB (CK-2) 5.0 ng/mL (0-6.6) 08/27/17 20:43 Troponin I Less than 0.010 ng/mL (< 0.028) 08/27/17 20:43 - Assessment/Plan 1. Aflutter/Afib RVR now 2. COPD exacerbation 3. Alcohol abuse 4. Tobacco abuse. PLAN: - Continued amiodarone drip - Eliquis for stroke prophylaxis. - Will continue digoxin for better rate controlled. - Due to insurance issues he will be transferred to [facility] in [facility]. I will try to communicate with Supervisor [employer] over there to update them.
[2017-08-31 13:42] VITALS: BMI 33.1
[2017-08-31] MEDS ORDERED: Digoxin 0.25 MG TAB PO SCH (13:45)
--- NOTE | 2017-08-31 15:54 | EKG ---
Test Reason : Blood Pressure : / mmHG Vent. Rate : 094 BPM Atrial Rate : 094 BPM P-R Int : 166 ms QRS Dur : 128 ms QT Int : 362 ms P-R-T Axes : 082 256 082 degrees QTc Int : 452 ms Poor data quality, interpretation may be adversely affected Sinus rhythm with Premature supraventricular complexes Right bundle branch block Abnormal ECG When compared with ECG of 27-AUG-2017 21:00, (Unconfirmed) Sinus rhythm has replaced Wide QRS tachycardia Vent. rate has decreased BY [address] Carole VEGAS ([id number]) on 08/31/2017 3:53:54 PM Referred By: RAVEN Confirmed By:DR. Carole VEGAS
--- NOTE | 2017-08-31 16:09 | EKG ---
Test Reason : STAT Blood Pressure : / mmHG Vent. Rate : 140 BPM Atrial Rate : 153 BPM P-R Int : 000 ms QRS Dur : 122 ms QT Int : 296 ms P-R-T Axes : 000 266 050 degrees QTc Int : 451 ms Atrial fibrillation with rapid ventricular response Right bundle branch block Abnormal ECG When compared with ECG of 28-AUG-2017 12:40, (Unconfirmed) Atrial fibrillation has replaced Sinus rhythm Vent. rate has increased BY 46 BPM Non-specific change in ST segment in Anterior leads T wave inversion now evident in Anterior leads Nonspecific T wave abnormality no longer evident in Lateral leads Confirmed by DR. Carole VEGAS ([id number]) on 08/31/2017 4:09:08 PM Referred By: SHARLA Confirmed By:DR. Carole VEGAS
--- NOTE | 2017-08-31 16:25 | DIS ---
DATE OF ADMISSION: 08/27/2017 DATE OF DISCHARGE: 08/31/2017 PRIMARY CARE PROVIDER: Ravi Rust M.D. DISCHARGE DIAGNOSES: 1. Acute on chronic hypercapnic respiratory failure. 2. Chronic obstructive pulmonary disease exacerbation. 3. Atrial fibrillation. 4. Cardioversion during this hospitalization. CONDITION OF PATIENT AT THE TIME OF DISCHARGE: Stable. I assessed Mr. Alonso on the day of discha rge. He reports feeling better. Denies any chest pain. Shortness of breath is better. PHYSICAL EXAMINATION: CARDIAC: awake overnight monitor shows atrial fibrillation with rapid ventricular response. S1 and S2 ar e heard, tachycardic and irregular. LUNGS: Clear to auscultation bilaterally. DISCHARGE MEDICATIONS: Tylenol suppository p.r.n., Tylenol p.r.n., Maalox p.r.n., amiodarone drip, apixaban 5 mg 2 times a day, Brovana 15 mcg nebulizer 2 times a day, aspirin 81 mg daily, Pulmicort nebulizer solution 2 times a day, Cardizem-CD 120 mg daily, Pepcid 20 mg 2 times a day, Flonase one spray to each naris 2 times a day, Motrin 400 mg every 6 hours as needed, Atrovent nebulizer 4 times a day as needed, DuoNeb p.r.n., Levaquin 750 mg daily, lisinopril 10 mg daily, Protonix 40 mg daily , tiotropium/olodaterol 2.5 mcg inhalation daily, Mucinex every 12 hours, and Solu-Medrol 30 mg ever y 6 hours. HOSPITAL COURSE: Mr. Alonso is a pleasant 56-year-old gentleman who was admitted to [facility] on 08/27/2017 for acute on chronic respiratory failure due to chronic obstructiv e pulmonary disease exacerbation. He was intubated and mechanically ventilated. He was seen by pul monology service. He was also seen by Cardiology Service because of atrial fibrillation with rapid ventricular response. He had a history of chronic paroxysmal atrial fibrillation. Because he was h ypotensive and in atrial fibrillation with rapid ventricular response, he was electrically cardiover amos on 08/28/2017. He reverted to atrial fibrillation. Currently, he is on an amiodarone drip. He was transferred from the Critical Care Unit to telemetry floor on 08/30/2017. Because of insurance reasons, arrangements were made for transfer to [facility]. He i s being discharged to [facility] on 08/31/2017. Many thanks for allowing me to participate in your patient's care. Please feel free to contact me w ith any questions or concerns. DISCHARGE DESTINATION: [facility]. TOTAL AMOUNT OF TIME SPENT COORDINATING THIS DISCHARGE: 33 minutes.
[2017-09-01] MEDS ORDERED: Digoxin 0.25 MG TAB PO SCH (09:00)
--- NOTE | 2017-09-01 18:13 | EKG ---
Test Reason : Blood Pressure : / mmHG Vent. Rate : 156 BPM Atrial Rate : 058 BPM P-R Int : 000 ms QRS Dur : 130 ms QT Int : 304 ms P-R-T Axes : 000 269 078 degrees QTc Int : 489 ms Wide QRS tachycardia Right bundle branch block Abnormal ECG Confirmed by STACEY KATHLEEN M.D. ([id number]), video tape editor ALBAN CASTELLANOS ([id number]) on 09/01/2017 6:13:27 PM Referred By: Confirmed By:STACEY KATHLEEN M.D.
== END 2017-08-31 15:29 | disposition short-term general hospital (02) | DRG 208 ==
LOC: ERS 20:25 → CCU 21:49 → 2NO 08-30 13:48
PROVIDERS: ADMIT Internal Medicine; ATTEND Internal Medicine
PROC: 5A1945Z Respiratory Ventilation, 24-96 Consecutive Hours (ICD-10-PCS; 2017-08-27)
PROC: 0BH17EZ Insertion of Endotracheal Airway into Trachea, Via Natural or Artificial Opening (ICD-10-PCS; 2017-08-27)
PROC: 5A2204Z Restoration of Cardiac Rhythm, Single (ICD-10-PCS; principal; 2017-08-28)
PROC: B24BZZ4 Ultrasonography of Heart with Aorta, Transesophageal (ICD-10-PCS; 2017-08-28)
DX: J96.22 Acute and chronic respiratory failure with hypercapnia (principal); I95.9 Hypotension, unspecified; J44.1 Chronic obstructive pulmonary disease with (acute) exacerbation; E87.1 Hypo-osmolality and hyponatremia; I48.92 Unspecified atrial flutter; J96.01 Acute respiratory failure with hypoxia; I48.0 Paroxysmal atrial fibrillation; I10 Essential (primary) hypertension; F10.10 Alcohol abuse, uncomplicated; Z79.01 Long term (current) use of anticoagulants; R00.0 Tachycardia, unspecified; F17.210 Nicotine dependence, cigarettes, uncomplicated; I08.1 Rheumatic disorders of both mitral and tricuspid valves
CPT/HCPCS: 31500; 36415; 71010; 80053; 81003; 82330; 82435; 82553; 82565; 82803; 82805; 82947; 83605; 83735; 84132; 84295; 84443; 84484; 85007; 85014; 85025; 85027; 87040; 93005; 93010; 93312; 94003; 94640; 94644; 94664; 96365; 96367; 96375; 99292; J0282; J1160; J1956; J2060; J2250; J2270; J2405; J2704; J2920; J2930; J3010; J3475; J7050; J7070; J7611; J7620; J7626